=== PATIENT | female | born 2000 | race African-American/Black ===

== ENCOUNTER 2024-06-03 07:58 | Emergency (ER) | payer MEDICAID ==
[~2024-06-03] VITALS: Ht 167.6 cm; Wt 95.0 kg
[2024-06-03 08:02] VITALS: BP 122/78; PULSE 98; RESP 18; TEMP 98.6; O2SAT 98
== END 2024-06-03 11:15 | disposition home or self-care (01) ==
LOC: ER 07:58
DX: S00.81XA Abrasion of other part of head, initial encounter (principal); W18.30XA Fall on same level, unspecified, initial encounter; Y93.01 Activity, walking, marching and hiking; Y92.89 Other specified places as the place of occurrence of the external cause; Y99.8 Other external cause status
CPT/HCPCS: 99283